=== PATIENT | male | born 1935 | race Caucasian/White ===

== ENCOUNTER → 2016-07-15 | Outpatient (CLI) | payer MEDICARE ==
[~2016-07-15] MED LIST: ASPIRIN325 MG PO; ASPIRIN81 MG PO; CO Q-10200 MG PO; DAILY MULTIPLE1 EAC1 PO; FLOMAX0.4 MG PO; OXYBUTYNIN CHLOR5 MG PO; PROSCAR5 MG PO; RED YEAST RICE30 GM PO; TIMOPTIC 0.5%1 EACH EYEBOTH; TYLENOL500 MG PO; VITAMIN D31000 UNI1 PO
== END | disposition short-term general hospital (02) ==
LOC: CLCARD 08:32
DX: Z01.810 Encounter for preprocedural cardiovascular examination (principal); I34.0 Nonrheumatic mitral (valve) insufficiency; I42.9 Cardiomyopathy, unspecified; R00.1 Bradycardia, unspecified; Z95.0 Presence of cardiac pacemaker; I48.0 Paroxysmal atrial fibrillation; E78.5 Hyperlipidemia, unspecified; I45.10 Unspecified right bundle-branch block; I51.7 Cardiomegaly; Z95.2 Presence of prosthetic heart valve